=== PATIENT | female | born 1955 | race Caucasian/White ===

== ENCOUNTER 2017-07-08 23:22 | Emergency (ER) | payer OTHER ==
[~2017-07-08] VITALS: Ht 160 cm; Wt 65.0 kg
[2017-07-08 23:26] VITALS: Ht 160 cm; Wt 65.0 kg
[2017-07-09 01:26] VITALS: BP 158/90
== END 2017-07-09 01:26 | disposition home or self-care (01) ==
LOC: ED 23:22
DX: J20.9 Acute bronchitis, unspecified (principal)
CPT/HCPCS: J7512; J7613; J7644; Q0092

== ENCOUNTER 2017-11-27 14:32 | Emergency (ER) | payer OTHER ==
[~2017-11-27] VITALS: Ht 154.9 cm; Wt 63.5 kg
[2017-11-27 14:37] VITALS: Ht 154.9 cm; Wt 63.5 kg
[2017-11-27 18:10] VITALS: BP 159/80
== END 2017-11-27 18:10 | disposition home or self-care (01) ==
LOC: ED 14:32
DX: H81.10 Benign paroxysmal vertigo, unspecified ear (principal); E11.9 Type 2 diabetes mellitus without complications; R03.0 Elevated blood-pressure reading, without diagnosis of hypertension
CPT/HCPCS: J8597

== ENCOUNTER 2019-01-06 16:41 | Emergency (ER) | payer BC, OTHER ==
[~2019-01-06] VITALS: Ht 162.6 cm; Wt 63.7 kg
[2019-01-06 16:45] VITALS: Ht 162.6 cm; Wt 63.7 kg
[2019-01-06 18:13] VITALS: BP 144/83
== END 2019-01-06 18:13 | disposition home or self-care (01) ==
LOC: ED 16:41
DX: T78.40XA Allergy, unspecified, initial encounter (principal); E11.9 Type 2 diabetes mellitus without complications; X58.XXXA Exposure to other specified factors, initial encounter
CPT/HCPCS: 82962; J8540; Q0163